=== PATIENT | female | born 1950 | race African-American/Black ===

== ENCOUNTER → 2020-02-19 | Outpatient (CLI) | payer OTHER ==
--- NOTE | 2020-02-19 08:55 | KCIC ---
EXAM: Dual energy x-ray absorptiometry (DEXA). HISTORY: Postmenopausal female presents for osteoporosis screening. COMPARISON: None. TECHNIQUE: Dual energy x-ray absorptiometry of the lumbar spine and left hip was performed. Calculation of bone mineral density based on standard deviations above or below the expected young adult normal value (T-score) was completed. FINDINGS: The average bone mineral density in the 1st through 4th lumbar vertebrae is 1.151 g/cmxcm, corresponding with a T-score of 0.9. The average total bone mineral density in the left hip is 0.794 g/cmxcm, corresponding with a T-score of -1.2. IMPRESSION: 1. Normal bone mineral density measured at the lumbar spine. 2. Osteopenia measured at the left hip. Note: Definitions established by the [employer]: 1. Normal: T-score is -1.0 or above. 2. Osteopenia: T-score is between -1.0 and -2.5 . 3. Osteoporosis: T-score is -2.5 or below. Electronically signed by: Kajal Barrios MD (02/19/2020 8:52 AM) [id number]
== END ==
LOC: KCIC DEXA 08:23
PROVIDERS: ATTEND Nurse Practitioner Family
DX: M85.88 Other specified disorders of bone density and structure, other site (principal); E11.9 Type 2 diabetes mellitus without complications; Z78.0 Asymptomatic menopausal state
CPT/HCPCS: 77080